=== PATIENT | female | born 1965 | race Caucasian/White ===

== ENCOUNTER 2017-08-09 08:54 | Day surgery (SDC) | payer MEDICAID ==
[2017-08-09] MEDS ORDERED: Lactated Ringer's 500 ML IV ONE (09:54)
[2017-08-09 09:55] VITALS: BMI 25.3
[2017-08-09 10:03] VITALS: O2SAT 100
[2017-08-09] MEDS ORDERED: Midazolam 2 MG/2 ML VIAL ONE (11:25)
[2017-08-09] MEDS ORDERED: Propofol 10 mg/ml Inj (20 ML) ONE (11:26)
[2017-08-09] MEDS ORDERED: Lidocaine 2% MPF (5 ml) Inj ONE (11:26)
[2017-08-09 12:08] VITALS: BP 101/53; PULSE 60; RESP 19; TEMP 97.2
== END 2017-08-09 12:49 | disposition home or self-care (01) ==
LOC: H.ENDO 08:54
PROVIDERS: ATTEND Internal Medicine Gastroenterology
DX: Z12.11 Encounter for screening for malignant neoplasm of colon (principal); K64.8 Other hemorrhoids
CPT/HCPCS: 45378; J2250; J2704; J7120